=== PATIENT | male | born 2000 | race Two or more races ===

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

== ENCOUNTER 2018-03-06 14:08 | Emergency (ER) | payer OTHER ==
[~2018-03-06] VITALS: Ht 182.9 cm; Wt 130.2 kg
[2018-03-06 14:35] VITALS: BP 148/102
== END 2018-03-06 14:35 | disposition home or self-care (01) ==
LOC: ED 14:08
DX: M54.5 Low back pain (principal)

== ENCOUNTER 2019-01-18 22:02 | Emergency (ER) | payer OTHER ==
[~2019-01-18] VITALS: Ht 180.3 cm; Wt 120.7 kg
[2019-01-18 22:06] VITALS: Ht 180.3 cm; Wt 120.7 kg
[2019-01-18 23:25] VITALS: BP 114/67
== END 2019-01-18 23:48 | disposition home or self-care (01) ==
LOC: ED 22:02
DX: S93.402A Sprain of unspecified ligament of left ankle, initial encounter (principal); X50.1XXA Overexertion from prolonged static or awkward postures, initial encounter; Y93.66 Activity, soccer; Y92.322 Soccer field as the place of occurrence of the external cause; Y99.8 Other external cause status
CPT/HCPCS: Q0092

== ENCOUNTER 2019-12-03 15:14 | Emergency (ER) | payer OTHER ==
[~2019-12-03] VITALS: Ht 177.8 cm; Wt 132.4 kg
[2019-12-03 15:30] VITALS: Ht 177.8 cm; Wt 132.4 kg
[2019-12-03 16:40] VITALS: BP 105/72
== END 2019-12-03 16:40 | disposition home or self-care (01) ==
LOC: ED 15:14
DX: S76.912A Strain of unspecified muscles, fascia and tendons at thigh level, left thigh, initial encounter (principal); X58.XXXA Exposure to other specified factors, initial encounter; Y93.79 Activity, other specified sports and athletics; Y92.89 Other specified places as the place of occurrence of the external cause; Y99.8 Other external cause status

== ENCOUNTER 2020-06-13 12:03 | Emergency (ER) | payer OTHER, SELFPAY ==
[~2020-06-13] VITALS: Ht 182.9 cm; Wt 117.9 kg
[2020-06-13 12:07] VITALS: Ht 182.9 cm; Wt 117.9 kg
[2020-06-13 12:54] VITALS: BP 116/78
== END 2020-06-13 12:54 | disposition home or self-care (01) ==
LOC: ED 12:03
DX: U07.1 COVID-19 (principal)
CPT/HCPCS: U0003-CS

== ENCOUNTER 2020-11-28 17:44 | Emergency (ER) | payer OTHER, SELFPAY ==
[~2020-11-28] VITALS: Ht 182.9 cm; Wt 127.0 kg
[2020-11-28 17:58] VITALS: Ht 182.9 cm; Wt 127.0 kg
[2020-11-28 19:38] LABS: BASOPHIL % 0.7 % (0.2-1.5); PLATELET COUNT 318 x10^3mcL (152-348); RED CELL DISTRIBUTION WIDTH 16.1 % (12.1-16.2)
[2020-11-28 19:56] LABS: CALCIUM 9.7 mg/dL (8.5-10.1); CARBON DIOXIDE 27.1 mmol/L (21-32); CHLORIDE SERUM 103 mmol/L (98-107); CREATININE SERUM 1.1 mg/dL (0.7-1.3); GFR1 > 60 mL/min; GLUCOSE SERUM 79 mg/dL (74-106); POTASSIUM SERUM 3.9 mmol/L (3.5-5.1); SODIUM SERUM 141 mmol/L (136-145)
[2020-11-28 20:02] LABS: ALBUMIN 4.5 g/dL (3.4-5.0); ALKALINE PHOSPHATASE 66 U/L (46-116); ALT/SGPT 56 U/L (16-63); AST/SGOT 28 U/L (15-37); BILIRUBIN TOTAL 0.4 mg/dL (0.20-1.00); LIPASE 149 IU/L (73-393)
[2020-11-28 20:03] LABS: TOTAL PROTEIN, SERUM 8.3 g/dL (6.4-8.2)
[2020-11-28] MEDS ORDERED: ZOF4 PO (21:03)
[2020-11-28] MEDS ORDERED: PEPCID AC20 M2 PO (21:03)
[2020-11-28 21:15] VITALS: BP 136/79
== END 2020-11-28 21:15 | disposition home or self-care (01) ==
LOC: ED 17:44
PROVIDERS: Emergency Medicine
DX: K29.70 Gastritis, unspecified, without bleeding (principal)